=== PATIENT | male | born 1950 | race Caucasian/White ===

== ENCOUNTER 2024-07-21 10:26 | Outpatient (CLI) | payer MEDICARE | END 2024-07-21 23:59 | disposition home or self-care (01) | LOC: MRI02 10:26 | PROVIDERS: ATTEND Registered Nurse | DX: I63.81 Other cerebral infarction due to occlusion or stenosis of small artery (principal); G43.909 Migraine, unspecified, not intractable, without status migrainosus | CPT/HCPCS: 70551 ==